=== PATIENT | male | born 1990 | race African-American/Black ===

== ENCOUNTER 2016-09-26 13:52 | Emergency (ER) | payer SELFPAY ==
[2016-09-26] MEDS ORDERED: OXYCODONE-ACETAMINOPHEN 5-325 MG TABLET PO ONE ×2 (14:02→16:54)
[2016-09-26] MEDS ORDERED: ONDANSETRON 4 MG TAB.RAPDIS PO ONE (14:02)
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
[2016-09-26] MEDS ORDERED: SILVER SULFADIAZINE 1% CREAM 400 GM TP PRN (14:52)
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
[2016-09-26] MEDS ORDERED: OXYCODONE-ACETAMINOPHEN 5-325 MG TABLET ONE (19:57)
[2016-09-26 20:48] VITALS: BP 128/75
== END 2016-09-26 21:16 | disposition short-term general hospital (02) ==
LOC: ER 13:52
DX: T25.321A Burn of third degree of right foot, initial encounter (principal); T23.241A Burn of second degree of multiple right fingers (nail), including thumb, initial encounter; X10.2XXA Contact with fats and cooking oils, initial encounter; Y93.G3 Activity, cooking and baking; F17.210 Nicotine dependence, cigarettes, uncomplicated
CPT/HCPCS: 16020; 99285; S0119; J3490

== ENCOUNTER 2017-05-17 18:39 | Emergency (ER) | payer SELFPAY ==
[2017-05-17] MEDS ORDERED: LIDOCAINE 1% INJ-PF (10 MG/ML) 30 ML SDV INJ ONE (19:13)
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
[2017-05-17 20:18] VITALS: BP 126/69
== END 2017-05-17 20:18 | disposition home or self-care (01) ==
LOC: ER 18:39
DX: S41.112A Laceration without foreign body of left upper arm, initial encounter (principal); W25.XXXA Contact with sharp glass, initial encounter; Y92.009 Unspecified place in unspecified non-institutional (private) residence as the place of occurrence of the external cause; F17.210 Nicotine dependence, cigarettes, uncomplicated; Z71.6 Tobacco abuse counseling; Z88.0 Allergy status to penicillin
CPT/HCPCS: 99282; 12004; J3490

== ENCOUNTER 2019-05-11 12:25 | Emergency (ER) | payer SELFPAY ==
[2019-05-11] MEDS ORDERED: DEXAMETHASONE SOD PHOS INJ 10 MG/1 ML VIAL IV ONE (12:39)
[2019-05-11] MEDS ORDERED: CLINDAMYCIN 600 MG/D5W RTU 600 MG/50 ML RTUPB IV ONE (12:40)
--- NOTE | 2019-05-11 12:43 | ER Document Report ---
ED Medical Screen (RME) - General Chief Complaint: Fever Stated Complaint: EAR PAIN,FEVER Time Seen by Provider: 05/11/19 12:35 TRAVEL OUTSIDE OF THE [place] IN LAST 30 DAYS: No - HPI Notes: 05/11/19 12:41 Patient is a 28-year-old male with no significant past medical history who presents complaining of sore throat that began 6 days ago. Patient states that he has been having some trouble swallowing, but is able to drink fluids. He did have some drooling last night. He is allergic to penicillins. He is also had intermittent fever. No other chest pain or abdominal pain. I have treated and performed a rapid initial assessment of this patient. A comprehensive ED assessment and evaluation of the patient, analysis of test results and completion of medical decision making process will be conducted by additional ED providers. PHYSICAL EXAMINATION: GENERAL: Well-appearing, well-nourished and in no acute distress. Throat: There is noted erythema with left palatine shift and uvular deviation suggestive of possible abscess to the area. - Related Data Allergies/Adverse Reactions: Penicillins Allergy (Verified 05/11/19 12:34) Past Medical History Renal/ Medical History: Denies: Hx Peritoneal Dialysis Musculoskeltal Medical History: Reports Hx Musculoskeletal Trauma Traumatic Medical History: Reports: Hx Fractures - Immunizations Immunizations up to date: Yes Hx Diphtheria, Pertussis, Tetanus Vaccination: Yes Physical Exam - Vital signs Vitals: Temp Pulse Resp BP Pulse Ox 98.2 F 131 H 16 124/81 97 05/11/19 12:29 05/11/19 12:29 05/11/19 12:29 05/11/19 12:29 05/11/19 12:29 Course - Vital Signs Vital signs: Temp Pulse Resp BP Pulse Ox 98.2 F 131 H 16 124/81 97 05/11/19 12:29 05/11/19 12:29 05/11/19 12:29 05/11/19 12:29 05/11/19 12:29
[2019-05-11] MEDS: NORMAL SALINE 1000 ML 1,000 ML IV PRN ×2 (13:19→14:30)
[2019-05-11 13:25] LABS: ABSOLUTE LYMPHOCYTES (AUTO) 1.4 10^3/uL (0.5-4.7); ABSOLUTE MONOCYTES (AUTO) 1.4 10^3/uL (0.1-1.4); ABSOLUTE NEUT (AUTO) 5.8 10^3/uL (1.7-8.2); BASOPHILS % (AUTO) 0.4 % (0-2); EOSINOPHILS % (AUTO) 0.4 % (0-6); HEMATOCRIT 43.1 % (37.9-51.0); HEMOGLOBIN 14.3 g/dL (13.5-17.0); LYMPHOCYTES % (AUTO) 16.3 % (13-45); MEAN CORPUSCULAR HEMOGLOBIN 28.3 pg (27.0-33.4); MEAN CORPUSCULAR HGB CONC 33.2 g/dL (32.0-36.0); MEAN CORPUSCULAR VOLUME 85 fl (80-97); MONOCYTES % (AUTO) 15.7 % (3-13); PLATELET COUNT 238 10^3/uL (150-450); RED BLOOD COUNT 5.06 10^6/uL (4.35-5.55); RED CELL DISTRIBUTION WIDTH 14.3 % (11.5-14.0); SEGMENTED NEUTROPHILS % (AUTO) 67.2 % (42-78); TOTAL CELLS COUNTED % (AUTO) 100 %; WHITE BLOOD COUNT 8.7 10^3/uL (4.0-10.5)
[2019-05-11 14:17] LABS: ALBUMIN 4.3 g/dL (3.5-5.0); ALKALINE PHOSPHATASE 73 U/L (38-126); ANION GAP 13 (5-19); ASPARTATE AMINO TRANSFERASE 16 U/L (17-59); BILIRUBIN,DIRECT 0.2 mg/dL (0.0-0.4); BILIRUBIN,TOTAL 0.5 mg/dL (0.2-1.3); BLOOD UREA NITROGEN 14 mg/dL (7-20); CALCIUM 9.8 mg/dL (8.4-10.2); CARBON DIOXIDE 26 mmol/L (22-30); CHLORIDE 102 mmol/L (98-107); GLUCOSE 94 mg/dL (75-110); POTASSIUM 4.1 mmol/L (3.6-5.0); TOTAL PROTEIN 8.1 g/dL (6.3-8.2)
--- NOTE | 2019-05-11 14:41 | RADIOLOGY REPORT (SQ) ---
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 TECHNIQUE: Post IV contrasted scanning from skull base through lung apices with review of bone, soft tissue and lung windows. Reconstructed coronal and sagittal MPR images reviewed. All images stored on PACS. All CT scanners at this facility use dose modulation, iterative reconstruction, and/or weight based d osing when appropriate to reduce radiation dose to as low as reasonably achievable (ALARA). [facility]: Dose Right [facility]: CareDose [facility]: Dose Right [facility]: Teradose 4D [facility]: [employer] CONTRAST TYPE AND DOSE: contrast/concentration: Isovue 350.00 mg/ml; Total Contrast Delivered: 75.0 ml; Total Saline Delivered: 43.6 ml RENAL FUNCTION: None required. The patient is less than 50 years old. RADIATION DOSE: CT Rad equipment meets quality standard of care and radiation dose reduction techniq ues were employed. CTDIvol: 16.0 mGy. DLP: 523 mGy-cm. . LIMITATIONS: None. FINDINGS: SKULL BASE: Intact. MAJOR SALIVARY GLANDS: No solid or cystic masses. No inflammatory changes. LYMPHADENOPATHY: No adenopathy. MUCOSAL MASSES OR ASYMMETRY: There is marked mucosal swelling in the left tonsillar fossa with a defi nable peritonsillar fluid collection. LARYNX/CORDS: No abnormal findings. VASCULAR STRUCTURES: The major vessels are patent. LUNG APICES: Clear. BONES: Intact. THYROID: Normal size. No masses. PARANASAL SINUSES: Clear. OTHER: No other significant finding. IMPRESSION: Left peritonsillar abscess. TECHNICAL DOCUMENTATION: JOB ID: [id number] Quality ID # [id number]: Final reports with documentation of one or more dose reduction techniques (e.g., Au tomated exposure control, adjustment of the mA and/or kV according to patient size, use of iterative reconstruction technique) 2010 [employer]- All Rights Reserved Reading location - IP/workstation name: [email or web address]
[2019-05-11] MEDS: LIDOCAINE 2% INJ (20 MG/ML) 20 ML MDV INJ ONE ×2 (18:32→18:43)
[2019-05-11] MEDS: BUPIVACAINE HCL 0.25 % INJ/PF (2.5 MG/1 ML) 30 ML VIAL INJ ONE ×2 (18:32→18:44)
--- NOTE | 2019-05-11 18:34 | ER Document Report ---
Entered by KARELY YU SCRIBE 05/11/19 [id number] Acting as scribe for:VIDYA YU DO ED ENT - General Chief Complaint: Sore Throat Stated Complaint: EAR PAIN,FEVER Time Seen by Provider: 05/11/19 12:35 Primary Care Provider: VON SLATER DO [ASSOCIATE] - 05/13/19 Mode of Arrival: Ambulatory Information source: Patient Notes: This 28 year old male that presents to the emergency department today with complaints of throat pain x5-6 days. Patient states that his sore throat has progressed since onset. Patient has been having fevers and chills. Patient handling secretions. TRAVEL OUTSIDE OF THE [place] IN LAST 30 DAYS: No - Related Data Allergies/Adverse Reactions: Penicillins Allergy (Verified 05/11/19 12:34) Past Medical History - General Information source: Patient - Social History Smoking Status: Current Every Day Smoker Cigarette use (# per day): Yes Frequency of alcohol use: Occasional Drug Abuse: None Family History: Reviewed & Not Pertinent Patient has suicidal ideation: No Patient has homicidal ideation: No Renal/ Medical History: Denies: Hx Peritoneal Dialysis Musculoskeletal Medical History: Reports Hx Musculoskeletal Trauma Traumatic Medical History: Reports: Hx Fractures - Immunizations Immunizations up to date: Yes Hx Diphtheria, Pertussis, Tetanus Vaccination: Yes Review of Systems - Review of Systems Constitutional: No symptoms reported EENT: See HPI, Throat pain Cardiovascular: No symptoms reported Respiratory: No symptoms reported Gastrointestinal: No symptoms reported Genitourinary: No symptoms reported Male Genitourinary: No symptoms reported Musculoskeletal: No symptoms reported Skin: No symptoms reported Hematologic/Lymphatic: No symptoms reported Neurological/Psychological: No symptoms reported -: Yes All other systems reviewed and negative Physical Exam - Vital signs Vitals: Temp Pulse Resp BP Pulse Ox 98.2 F 131 H 16 124/81 97 05/11/19 12:29 05/11/19 12:29 05/11/19 12:29 05/11/19 12:29 05/11/19 12:29 Interpretation: Tachycardic Notes: Appears uncomfortable - General General appearance: Alert - HEENT Head: Normocephalic, Atraumatic Eyes: Normal Pupils: PERRL Pharynx: Peritonsillar abscess - left, extending into the soft palate on the left. Mild trismus. No submandibular or sublingual swelling. No tongue edema. - Respiratory Respiratory status: No respiratory distress Chest status: Nontender Breath sounds: Normal Chest palpation: Normal - Cardiovascular Rhythm: Regular, Tachycardia Heart sounds: Normal auscultation Murmur: No - Abdominal Inspection: Normal Distension: No distension Bowel sounds: Normal Tenderness: Nontender Organomegaly: No organomegaly - Back Back: Normal, Nontender - Extremities General upper extremity: Normal inspection, Nontender, Normal color, Normal ROM, Normal temperature General lower extremity: Normal inspection, Nontender, Normal color, Normal ROM, Normal temperature, Normal weight bearing. No: Sonny's sign - Neurological Neuro grossly intact: Yes Cognition: Normal Orientation: AAOx4 [place] Coma Scale Eye Opening: Spontaneous [place] Coma Scale Verbal: Oriented [place] Coma Scale Motor: Obeys Commands [place] Coma Scale Total: 15 Speech: Normal Motor strength normal: LUE, RUE, LLE, RLE Sensory: Normal - Psychological Associated symptoms: Normal affect, Normal mood - Skin Skin Temperature: Warm Skin Moisture: Dry Skin Color: Normal Course - Re-evaluation Re-evalutation: 05/11/19 15:[address] Dr. Salter will call back. 05/11/19 16:30 ENT called on cell. If patient is handling secretions and has no airway compromise can be discharged home to follow-up in office. Will attempt to p.o. challenge patient here. He has received clindamycin and dexamethasone as well as fluids for dehydration. 05/11/19 17:17 Discussed with patient who states that he is upset because he is still having a difficult time swallowing as it is very painful. He is unable to eat and is hungry. ENT, Dr. 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 05/11/19 18:29 Dr. Slater here in ED. 05/11/19 18:[address] Peña. - Vital Signs Vital signs: Temp Pulse Resp BP Pulse Ox 98.2 F 131 H 25 H 111/95 H 100 05/11/19 12:35 05/11/19 12:35 05/11/19 17:01 05/11/19 17:00 05/11/19 17:01 - Laboratory Result Diagrams: 05/11/19 13:05 05/11/19 13:05 Laboratory results interpreted by me: 05/11/19 05/11/19 13:05 13:05 RDW 14.3 H [place] % (Auto) 15.7 H AST 16 L Critical Care Note - Critical Care Note Total time excluding time spent on procedures (mins): 35 - Evaluation and management of peritonsillar abscess with multiple re-evaluations, consultation with specialist, coordination of care. Discharge - Discharge Clinical Impression: Peritonsillar abscess, Dehydration Condition: Stable Disposition: OTHER Instructions: Dehydration ([facility]), Post Incision and Drainage Prescriptions: Clindamycin HCl 300 mg PO TID #30 capsule Lidocaine HCl [Xylocaine 2% Viscous Soln 20 ml Udcup] 15 ml PO QIDP PRN #1 udc PRN Reason: Forms: Return to Work Referrals: VON SLATER DO [ASSOCIATE] - 05/13/19 I personally performed the services described in the documentation, reviewed and edited the documentation which was dictated to the scribe in my presence, and it accurately records my words and actions.
[2019-05-11] MEDS ORDERED: LIDOCAINE 1%/EPINEPHRINE INJ 20 ML VIAL INJ ONE (18:35)
[2019-05-11] MEDS ORDERED: MORPHINE SULFATE 10 MG/ML INJ IV ONE (19:45)
[2019-05-11] MEDS ORDERED: HYDROMORPHONE HCL INJ/PF 2 MG/ML AMPULE IM ONE (20:12)
[2019-05-11] MEDS ORDERED: PENICILLIN V POTASSIUM 500 MG TABLET PO ONE (20:17)
[2019-05-11 21:29] VITALS: BP 114/89
--- NOTE | 2019-05-12 16:15 | PDOC CONSULTATION ---
Consultation Consult Date: 05/11/19 Provider Consulted: VNO CONTI Consult reason:: ER physician, Dr. Henderson, contacted ENT for left VAULT CLERK evaluation and management History of Present Illness Patient complains of: Worsening left sore throat pain over the past week History of Present Illness: JASMEET HERNANDEZ I is a 28 year old Afro-[place] male who signed out emergency medicine care on May 11, 2019 for a worsening left sore throat pain and worsening left ear referred pain over the past week. ER staff, Dr. Henderson evaluated the patient with concern for a left VAULT CLERK/peritonsillar abscess is also noted on CT neck imaging with contrast. The patient was doing reasonably well in the ER setting, was breathing without difficulty/no SOB, was able to manage his secretions, and there was reasonable pain control, but the patient became upset and wanted his left VAULT CLERK managed now in the ER setting as he expressed concern over losing his job. The patient's review of systems is essentially unremarkable/no symptoms reported other than the HEENT portion which can be referenced here in the HPI section. Past Medical History Past Medical History: Same as above Cardiac Medical History: Reports: Heart Murmur - The patient states no antibiotics required for procedures Pulmonary Medical History: Reports: None EENT Medical History: Reports: None, Throat EENT History Note: The patient denies prior history of acute recurrent or chronic tonsillitis symptoms, no tonsil stones, and no history of a prior peritonsillar abscess/VAULT CLERK. Endocrine Medical History: Reports: None Renal/ Medical History: Reports: None Malignancy Medical History: Reports: None GI Medical History: Reports: None Musculoskeltal Medical History: Reports: None Skin Medical History: Reports: None Psychiatric Medical History: Reports: None Traumatic Medical History: Reports: None Hematology: Reports: None Infectious Medical History: Reports: None Past Surgical History Past Surgical History: Reports: None Social History Information Source: Patient Smoking Status: Current Every Day Smoker Frequency of Alcohol Use: Social Family History Family History: Reviewed & Not Pertinent Family History: Reviewed with patient and not pertinent Parental Family History Reviewed: Yes Children Family History Reviewed: NA Sibling(s) Family History Reviewed.: NA Medication/Allergy Home Medications: Dexamethasone [Decadron 4 Mg Tablet] 8 mg PO DAILY #6 tablet 05/11/19 Hydrocodone/Acetaminophen [[place] 5-325 mg Tablet] 1 tab PO Q6HP PRN #10 tablet 12/03/19 Lidocaine HCl [Xylocaine 2% Viscous Soln 20 ml Udcup] 15 ml PO QIDP PRN #1 udc 05/11/19 Penicillin V Potassium [Penicillin Vk 500 mg Tablet] 500 mg PO TID #30 tablet 05/11/19 Allergies/Adverse Reactions: Penicillins Allergy (Verified 05/11/19 12:34) Review of Systems Constitutional: PRESENT: as per HPI Eyes: PRESENT: as per HPI Ears: PRESENT: as per HPI Nose, Mouth, and Throat: PRESENT: as per HPI Cardiovascular: PRESENT: as per HPI Respiratory: PRESENT: as per HPI Gastrointestinal: PRESENT: as per HPI Genitourinary: PRESENT: as per HPI Musculoskeletal: PRESENT: as per HPI Integumentary: PRESENT: as per HPI Neurological: PRESENT: as per HPI Psychiatric: PRESENT: as per HPI Endocrine: PRESENT: as per HPI Hematologic/Lymphatic: PRESENT: as per HPI Allergic/Immunologic: PRESENT: as per HPI Physical Exam Vital Signs: Temp Pulse Resp BP Pulse Ox 98 F 94 17 114/89 H 94 05/11/19 21:28 05/11/19 21:28 05/11/19 21:28 05/11/19 21:28 05/11/19 21:28 Intake & Output 05/11/19 05/12/19 05/13/19 06:59 06:59 06:59 Intake Total 2049 Balance 2049 Weight 65.7 kg General appearance: PRESENT: cooperative, well-developed, other - The patient appears uncomfortable overall Head exam: PRESENT: atraumatic, normocephalic Eye exam: PRESENT: EOMI Ear exam: PRESENT: normal external ear exam, TM's normal bilaterally Mouth exam: PRESENT: moist, neck supple, tongue midline Teeth exam: PRESENT: poor dentation Throat exam: PRESENT: other - Findings consistent with a left VAULT CLERK Neck exam: PRESENT: tenderness - Left upper neck tenderness to palpation, other - The neck was supple with no lymphadenopathy noted Respiratory exam: PRESENT: clear to auscultation madhavi Cardiovascular exam: PRESENT: RRR, other - No murmur noted Extremities exam: PRESENT: full ROM Musculoskeletal exam: PRESENT: full ROM, other - Bilateral TMJ were nontender to palpation Neurological exam: PRESENT: alert, oriented to person, oriented to place, oriented to time, oriented to situation, CN II-XII grossly intact Skin exam: PRESENT: other - There was extensive tattooing and scattered scars noted Additional comments: After discussion with the ER physician, evaluation and discussion of the CT neck with contrast imaging with the ER physician and patient, and completion of the patient consultation evaluation the incision and drainage of the left VAULT CLERK/peritonsillar abscess was addressed with the patient. Left peritonsillar abscess/VAULT CLERK incision and drainage procedure: After informed consent was obtained local anesthetic with epinephrine was administered to establish a left tonsillar/peritonsillar block. This was followed by needle aspiration of approximately 10 cc of purulence some of which was sent for culture. At this point there was an incision made in a curvilinear fashion at the superior mid peritonsillar aspect followed by probing with a hemostat with additional purulence released. This was followed by swish and gargle with water and suctioning with reasonable hemostasis being noted. The patient tolerated the procedure reasonably well and there were no complications. Results Laboratory Results: 05/11/19 13:05 05/11/19 13:05 Impressions: Soft Tissue Neck CT 05/11/19 12:40 IMPRESSION: Left peritonsillar abscess. Assessment & Plan - Diagnosis (1) Throat pain in adult Is this a current diagnosis for this admission?: Yes (2) Otalgia of left ear Is this a current diagnosis for this admission?: Yes (3) Dehydration Is this a current diagnosis for this admission?: Yes (4) Peritonsillar abscess Is this a current diagnosis for this admission?: Yes Plan: Same as above - Time Time Spent: 50 to 70 Minutes Medications reviewed and adjusted accordingly: Yes - Discharge medications were discussed with the ER staff physician Anticipated discharge: Home Within: within 24 hours - Plan Summary Plan Summary: Same as above, and the patient will also be seen in the [facility] office with Dr. Conti 2 weeks from May 11, 2019 which he voiced an understanding of and said that he would call the office this week to schedule his appointment.
== END 2019-05-11 21:30 | disposition other institution (70) ==
LOC: ER 12:25
DX: J36 Peritonsillar abscess (principal); E86.0 Dehydration; R50.9 Fever, unspecified; H92.09 Otalgia, unspecified ear; F17.210 Nicotine dependence, cigarettes, uncomplicated; Z88.0 Allergy status to penicillin
CPT/HCPCS: 99285; 96361; 96375; 96365; 36415; 87040; 87070 ×2; 87205; 87880; 85025; 87077; 80053; 83605; 70491; 42700; J3490; J1170; J7030; J1100

== ENCOUNTER 2019-09-08 15:05 | Emergency (ER) | payer SELFPAY ==
[2019-09-08 15:18] VITALS: BP 167/92
--- NOTE | 2019-09-08 16:25 | ER Document Report ---
ED Neck/Back Problem - General Chief Complaint: Back Pain Stated Complaint: BACK PAIN Time Seen by Provider: 09/08/19 16:12 Mode of Arrival: Ambulatory Information source: Patient Notes: 29-year-old male presented to ED for complaint of low back pain across the back. He states he has had this back issue for about 15 years. He states he is out of his muscle relaxer and was scared to use ibuprofen due to the coronavirus pandemic. He is alert oriented respirations regular nonlabored speaking in full sentences. He states there is no new injury he just has increase in pain due to not taking his ibuprofen. TRAVEL OUTSIDE OF THE [place] IN LAST 30 DAYS: No - HPI Onset: Other Where: Home - Several days Onset: Gradual Timing: Still present Quality of pain: Achy, Sharp Severity: Mild Pain Level: 2 Context: Bending, Lifting Recent injury: No Associated symptoms: Like prior neck/back pain, Lower back pain. denies: Constipation, Incontinence, Motor loss, Numbness/tingling, Radiation to arm, Radiation to chest, Radiation to leg, Sensory loss, Sweaty, Unable to urinate, Upper back pain Exacerbated by: Movement of trunk, Sitting position Relieved by: Nothing Similar symptoms previously: Yes Recently seen / treated by doctor: No - Related Data Allergies/Adverse Reactions: Penicillins Allergy (Verified 09/08/19 16:08) Past Medical History - General Information source: Patient - Social History Smoking Status: Current Every Day Smoker Cigarette use (# per day): Yes - Pack per day Chew tobacco use (# tins/day): No Smoking Education Provided: Yes - 4 minutes Frequency of alcohol use: Occasional Drug Abuse: Marijuana Occupation: [employer][x[employer] Lives with: Family Family History: Reviewed & Not Pertinent Patient has suicidal ideation: No Patient has homicidal ideation: No - Past Medical History Cardiac Medical History: Reports: Hx Heart Murmur - The patient states no antibiotics required for procedures Pulmonary Medical History: Reports: None EENT Medical History: Reports: None Neurological Medical History: Reports: None Endocrine Medical History: Reports: None Renal/ Medical History: Reports: None Malignancy Medical History: Reports None GI Medical History: Reports: None Musculoskeletal Medical History: Reports Hx Musculoskeletal Trauma Skin Medical History: Reports None Psychiatric Medical History: Reports: None Traumatic Medical History: Reports: Hx Fractures Surgical Hx: Negative Past Surgical History: Reports: None - Immunizations Immunizations up to date: Yes Hx Diphtheria, Pertussis, Tetanus Vaccination: Yes Review of Systems - Review of Systems Constitutional: No symptoms reported EENT: No symptoms reported Cardiovascular: No symptoms reported Respiratory: No symptoms reported Gastrointestinal: No symptoms reported Genitourinary: No symptoms reported Male Genitourinary: No symptoms reported Musculoskeletal: Back pain, Muscle pain, Muscle stiffness Skin: No symptoms reported Hematologic/Lymphatic: No symptoms reported Neurological/Psychological: No symptoms reported -: Yes All other systems reviewed and negative Physical Exam - Vital signs Vitals: Temp Pulse Resp BP Pulse Ox 98.1 F 86 16 167/92 H 97 09/08/19 15:17 09/08/19 15:17 09/08/19 15:17 09/08/19 15:17 09/08/19 15:17 Interpretation: Normal - General General appearance: Appears well, Alert - HEENT Head: Normocephalic, Atraumatic Eyes: Normal Pupils: PERRL - Respiratory Respiratory status: No respiratory distress Chest status: Nontender Breath sounds: Normal Chest palpation: Normal - Cardiovascular Rhythm: Regular Heart sounds: Normal auscultation Murmur: No - Abdominal Inspection: Normal Distension: No distension Bowel sounds: Normal Tenderness: Nontender Organomegaly: No organomegaly - Back Back: Tender. No: Vertebra tenderness Notes: No signs or symptoms of cauda equina, no loss control of bowel bladder, no saddle anesthesia, no loss of control or sensation to his lower extremities. - Extremities General upper extremity: Normal inspection, Nontender, Normal color, Normal ROM, Normal temperature General lower extremity: Normal inspection, Nontender, Normal color, Normal ROM, Normal temperature, Normal weight bearing. No: Sonny's sign - Neurological Neuro grossly intact: Yes Cognition: Normal Orientation: AAOx4 [place] Coma Scale Eye Opening: Spontaneous [place] Coma Scale Verbal: Oriented [place] Coma Scale Motor: Obeys Commands [place] Coma Scale Total: 15 Speech: Normal Motor strength normal: LUE, RUE, LLE, RLE Sensory: Normal - Psychological Associated symptoms: Normal affect, Normal mood - Skin Skin Temperature: Warm Skin Moisture: Dry Skin Color: Normal Course - Re-evaluation Re-evalutation: 09/08/19 19:13 After performing a Medical Screening Examination, I estimate there is LOW risk for EXPANDING OR RUPTURED ABDOMINAL AORTIC ANEURYSM, CAUDA EQUINA SYNDROME, EPIDURAL MASS LESION, or HERNIATED DISK CAUSING SEVERE SPINAL STENOSIS, thus I consider the discharge disposition reasonable. I have reevaluated this patient multiple times and no significant life threatening changes are noted. The patient and I have discussed the diagnosis and risks, and we agree with discharging home and close follow-up. We also discussed returning to the Emergency Department immediately if new or worsening symptoms occur with the understanding that symptoms and presentations can change. We have discussed the symptoms which are most concerning (e.g., saddle anesthesia, urinary or bowel incontinence or retention, changing or worsening pain) that necessitate immediate return. - Vital Signs Vital signs: Temp Pulse Resp BP Pulse Ox 98.1 F 86 16 167/92 H 97 09/08/19 15:17 09/08/19 15:17 09/08/19 15:17 09/08/19 15:17 09/08/19 15:17 Discharge - Discharge Clinical Impression: Back pain Qualifiers: Back pain location: low back pain Chronicity: chronic Back pain laterality: bilateral Sciatica presence: without sciatica Qualified Code(s): M54.5 - Low back pain Condition: Stable Disposition: HOME, SELF-CARE Additional Instructions: Chronic Back Pain Chronic back pain (pain persisting longer than three months) is a common problem. A medical evaluation can look for herniated disc, arthritis, osteoporosis, tumors, and infections. But at least half the time, there's no obvious treatable cause. Anxiety and depression tend to worsen back pain. Ibuprofen or other anti-inflammatory medicine can help. A heating pad, used for 15-20 minutes at a time, can ease pain. For this type of back pain, narcotic medicines should be avoided. Muscle relaxers are rarely helpful unless you're jewell ving spasms. Activity is important. Find an aerobic exercise program that your back can tolerate. Too much rest makes back pain worse. Specific back exercises are usually prescribed to strengthen the back and abdominal muscles. Often, a physical therapist can help. Avoid heavy lifting, working while bent over, or standing with both knees straight. Most back pain patients do better with a firm mattress. If new symptoms of a "herniated disc" (radiation of pain, numbness, or tingling down the back of the leg or weakness in the leg) occur, you should be re-examined. PAIN MEDICATION INJECTION: You have received an injection of a pain medication. You should experience significant pain relief within 45 minutes. If this injection was a narcotic -- it will impair your judgement, slow your reaction time and make you sleepy (as well as relieve your pain). Narcotics also can cause nausea. You should not drive, work with machinery, or perform any task requiring mental alertness until all effects of the medication are gone -- six to eight hours. Do not take any alcohol, or sedatives, and do not take any other medication without checking with your physician. MUSCLE RELAXERS: Muscle relaxing medications are usually prescribed for acute muscle spasm or injury to the neck and back. They are often combined with antiinflammatory pain medication for increased relief. You may stop the muscle relaxer when the pain and stiffness have improved. Start the medication again if spasms recur. Muscle relaxers may cause drowsiness, especially with the first dose. Do not operate machinery or drive while under the effects of the medication. Most muscle relaxers last up to 24 hours. Do not combine the medication with alcohol. ICE PACKS: Apply ice packs frequently against the painful area. Many different schedules are recommended, such as "20 minutes on, 20 minutes off" or "one hour ice, two hours rest." If you need to work, you may need to go longer between ice treatments. You should plan to have the area ice packed AT LEAST one fourth of the time. The ice should be applied over the wrap, tape, or splint, or over a layer of cloth -- not directly against the skin. Some ice bags have a built-in cloth and can be put directly on the skin. WARM PACKS: After approximately two days, apply gentle heat (such as a heating pad or hot water bottle) for about 20 to 30 minutes about every two hours -- at least four times daily. Warmth and elevation will help you make a more rapid recovery, and will ease the pain considerably. Do not use HOT heat, and never apply heat for longer than 30 minutes. The continuous heat can invisibly damage skin and muscles -- even when no burn is seen on the surface. Damaged muscles can make you MORE sore. Stretching Exercises for the Back The physician has recommended that you begin stretching exercises for your back. These are often used even while the back is painful. However, you should notify the physician if the activities seem to increase your pain. PELVIC TILT: Lie flat on your back with knees bent. Tighten your stomach and buttock muscles so it flattens your lower back against the floor. Hold 10 seconds. Repeat 10 times, twice daily. KNEE RAISE: Lying on the back with knees bent, raise one knee to your chest, then the other. Hold both knees against the chest 10 seconds, then lower one knee at a time. Repeat 10 times, twice daily. PARTIAL TRUNK RAISE: Lie face down, arms at your sides. Keeping your waist on the floor, use your arms raise your chest up. Support yourself on your elbows for 30 seconds. Repeat twice daily, increasing the time to two minutes as you recover. FOLLOW-UP CARE: If you have been referred to a physician for follow-up care, call the physicians office for an appointment as you were instructed or within the next two days. If you experience worsening or a significant change in your symptoms, notify the physician immediately or return to the Emergency Department at any time for re-evaluation. Prescriptions: Cyclobenzaprine HCl [Flexeril 10 mg Tablet] 10 mg PO TIDP PRN #15 tab PRN Reason: Forms: Smoking Cessation Education
== END 2019-09-08 16:33 | disposition home or self-care (01) ==
LOC: ER 15:05
DX: G89.29 Other chronic pain (principal); M54.5 Low back pain; M79.10 Myalgia, unspecified site; F12.10 Cannabis abuse, uncomplicated; F17.210 Nicotine dependence, cigarettes, uncomplicated; Z71.6 Tobacco abuse counseling; Z88.0 Allergy status to penicillin
CPT/HCPCS: 99283; 99406